=== PATIENT | female | born 1995 | race Caucasian/White ===

== ENCOUNTER 2021-05-21 21:16 | Emergency (ER) | payer BC, MEDICAID, OTHER ==
[~2021-05-21] VITALS: Ht 157.5 cm; Wt 70.2 kg
[2021-05-21 22:48] LABS: BASOPHILS % (AUTO) 1 % (0-1); EOSINOPHILS % (AUTO) 5 % (1-7); LYMPHOCYTES % (AUTO) 35 % (22-44); MEAN CORPUSCULAR HEMOGLOBIN 29.1 pg (27.0-34.8); MEAN CORPUSCULAR HGB CONC 34.1 g/dL (32.4-35.8); MEAN PLATELET VOLUME 8.2 fL (7.4-10.4); MONOCYTES % (AUTO) 8 % (2-9); NEUTROPHILS % (AUTO) 52 % (42-75); PLATELET COUNT 272 x10^3/uL (130-400); RED BLOOD COUNT 4.26 x10^6/uL (3.82-5.3); RED CELL DISTRIBUTION WIDTH 13.6 % (9.6-15.2)
[2021-05-21 23:00] LABS: ALBUMIN 3.5 g/dL (3.4-5.0); ANION GAP 4 mmol/L (5-15); CALCIUM 8.8 mg/dL (8.5-10.1); CHLORIDE 109 mmol/L (98-107)
[2021-05-21 23:05] LABS: ALANINE AMINOTRANSFERASE 21 U/L (12-78); ALKALINE PHOSPHATASE 65 U/L (45-117); BILIRUBIN,TOTAL 0.5 mg/dL (0.2-1.0); CREATININE 0.58 mg/dL (0.55-1.02); TOTAL PROTEIN 6.8 g/dL (6.4-8.2)
--- NOTE | 2021-05-22 00:06 | NUR ---
PT C/O RIGHT LOWER ABD PAIN, FLANK PAIN AND RIGHT SHOULDER PAIN X1 DAY. PT STATES IT HURTS TO TAKE DEEP BRETAH, ALSO STATES ABD HAS BECOME MORE BLOATED SINCE SHE HAS BEEN HERE. PT A&O, RESPS EVEN AND UNLABORED, AGUSTO.
[2021-05-22] MEDS ORDERED: OXYcodone/APAP 10/325MG TABLET ONE (00:24)
[2021-05-22] MEDS ORDERED: ONDANSETRON ODT 8 MG ONE (00:24)
[2021-05-22] MEDS ORDERED: ONDANSETRON ODT 8 MG PO ONE (00:30)
[2021-05-22] MEDS ORDERED: OXYcodone/APAP 10/325MG TABLET PO ONE (00:30)
--- NOTE | 2021-05-22 00:33 | NUR ---
PT MEDICATED PER ORDER, TOLERATED WELL. AGUSTO.
--- NOTE | 2021-05-22 01:41 | NUR ---
us at bedside
--- NOTE | 2021-05-22 02:45 | NUR ---
report recieved from keith toledo
[2021-05-22 03:08] VITALS: BP 92/53
== END 2021-05-22 04:24 | disposition home or self-care (01) ==
LOC: ED 05-22 00:40
DX: U07.1 COVID-19 (principal); R07.89 Other chest pain; R10.9 Unspecified abdominal pain
CPT/HCPCS: 36415; 71045; 76700; 80053; 83690; 85025; 93005; 99285; Q0162